=== PATIENT | female | born 1970 | race Caucasian/White ===

== ENCOUNTER → 2017-03-20 | Outpatient (CLI) | payer OTHER ==
[~2017-03-20] MED LIST: AMLO1CAP12 PO; CHOL100015 PO; OMEP40CA6 PO; SIMV20TA3 PO; TRAZ50TA18 PO; VENL150C PO
[2017-03-20 09:34] LABS: ASPARTATE AMINO TRANSFERASE 87 U/L (15-37); BLOOD UREA NITROGEN 9 mg/dL (7-18)
== END | disposition home or self-care (01) ==
LOC: STAR 08:25
PROVIDERS: ATTEND Urology
DX: Z01.818 Encounter for other preprocedural examination (principal); N39.3 Stress incontinence (female) (male)
CPT/HCPCS: 36415; 80053; 81001; 87086

== ENCOUNTER 2017-04-11 10:48 | Day surgery (SDC) | payer OTHER ==
[~2017-04-11] VITALS: Ht 167.6 cm; Wt 78.0 kg
[~2017-04-11 10:48] MED LIST changes: +BUPIVACAINE/PF-EPI 0.5% 1:200K ONE; +ESTROGENS CONJUGATED VAG CRM 0.625MG/1G, 30GM ONE; +LIDOCAINE/PF 1%-EPI 1:200K, 30ML ONE; +NEOMY/POLYMYXIN B GU IRR. 1 ML IRRIG ONE; +THROMBIN 5,000 UNIT VIAL TP ONE
[2017-04-11] MEDS ORDERED: LACTATED RINGERS 1,000 ML IV SCH (11:12)
[2017-04-11 11:35] VITALS: BP 133/83
[2017-04-11] MEDS ORDERED: FENTANYL PF 250 MCG/5ML ONE (12:56)
[2017-04-11] MEDS ORDERED: MIDAZOLAM 1 MG/ML, 2ML ONE (12:57)
[2017-04-11] MEDS ORDERED: PROMETHAZINE 25 MG/ML, 1ML IV PRN (13:00)
[2017-04-11] MEDS ORDERED: hydrALAzine 20 MG/ML, 1ML IV PRN (13:00)
[2017-04-11] MEDS ORDERED: METOPROLOL 1 MG/ML, 5ML IV PRN (13:00)
[2017-04-11] MEDS ORDERED: MEPERIDINE/PF 25MG/0.5ML IVPush PRN (13:00)
[2017-04-11] MEDS ORDERED: MIDAZOLAM 1 MG/ML, 2ML IV PRN (13:00)
[2017-04-11] MEDS ORDERED: LABETALOL 5MG/ML, 20ML IV PRN (13:00)
[2017-04-11] MEDS ORDERED: EPHEDRINE 50 MG/ML, 1ML IVPush PRN (13:00)
[2017-04-11] MEDS ORDERED: FENTANYL PF 100 MCG/2ML IV PRN (13:00)
[2017-04-11] MEDS ORDERED: ONDANSETRON 2MG/ML, 2ML IVPush PRN (13:00)
[2017-04-11] MEDS ORDERED: OXYcodone 5 MG/5 ML ORAL.SOL UDC PO PRN (13:00)
[2017-04-11] MEDS ORDERED: ACETAMINOPHEN 325 MG TABLET PO PRN (13:00)
[2017-04-11] MEDS ORDERED: METOCLOPRAMIDE 5 MG/ML, 2ML IV PRN (13:00)
[2017-04-11] MEDS ORDERED: HYDROmorphone 1 MG/ML, 1ML IV PRN (13:00)
[2017-04-11] MEDS ORDERED: SCOPOLAMINE PATCH, 1.5MG PATCH.TD72 TD ONE ×2 (13:18)
[2017-04-11] MEDS ORDERED: APREPITANT 40 MG CAPSULE ONE (13:21)
[2017-04-11] MEDS ORDERED: EPHEDRINE 50 MG/ML, 1ML ONE (13:24)
[2017-04-11] MEDS ORDERED: GENTAMICIN 80 MG/2 ML ONE ×2 (13:24→14:09)
[2017-04-11] MEDS ORDERED: AMPICILLIN 2 GM ONE (13:24)
[2017-04-11] MEDS ORDERED: PROPOFOL 10 MG/ML, 50ML ONE (13:24)
[2017-04-11] MEDS ORDERED: DEXAMETHASONE 4 MG/ML, 1ML ONE (13:24)
[2017-04-11] MEDS ORDERED: PHENYLEPHRINE 10 MG/ML ONE (13:24)
[2017-04-11] MEDS ORDERED: ALBUTEROL SULFATE 2.5 MG/3 ML NPPB ONE (15:00)
[2017-04-11] MEDS ORDERED: PROMETHAZINE 25 MG/ML, 1ML ONE (15:21)
== END 2017-04-11 18:30 | disposition home or self-care (01) ==
LOC: OUT 10:48
PROVIDERS: ATTEND Urology
DX: N39.3 Stress incontinence (female) (male) (principal); I10 Essential (primary) hypertension; K21.9 Gastro-esophageal reflux disease without esophagitis; J45.20 Mild intermittent asthma, uncomplicated; Z90.710 Acquired absence of both cervix and uterus; Z88.0 Allergy status to penicillin; Z88.1 Allergy status to other antibiotic agents; Z90.49 Acquired absence of other specified parts of digestive tract; E78.00 Pure hypercholesterolemia, unspecified; Z87.440 Personal history of urinary (tract) infections; Z72.89 Other problems related to lifestyle; F17.210 Nicotine dependence, cigarettes, uncomplicated
CPT/HCPCS: 57288; 88112; 94640; C1771; J0290; J1100; J1580; J2250; J2370; J2550; J2704; J3010; J7120; J3490; J7613; J8501

== ENCOUNTER 2018-03-20 17:03 | Observation (INO) | payer OTHER ==
[~2018-03-20] VITALS: Ht 152.4 cm; Wt 66.8 kg
[~2018-03-20 17:03] MED LIST changes: -BUPIVACAINE/PF-EPI 0.5% 1:200K ONE; -ESTROGENS CONJUGATED VAG CRM 0.625MG/1G, 30GM ONE; -LIDOCAINE/PF 1%-EPI 1:200K, 30ML ONE; -NEOMY/POLYMYXIN B GU IRR. 1 ML IRRIG ONE; -THROMBIN 5,000 UNIT VIAL TP ONE
[2018-03-20] MEDS ORDERED: ONDANSETRON ODT 4 MG ONE (18:15)
[2018-03-20] MEDS ORDERED: MORPHINE SULFATE 4 MG/ML, 1ML ONE (18:15)
[2018-03-20] MEDS ORDERED: ONDANSETRON ODT 4 MG PO ONE (18:30)
[2018-03-20] MEDS ORDERED: MORPHINE SULFATE 4 MG/ML, 1ML IVPush ONE (18:30)
[2018-03-20] MEDS ORDERED: METF500T4 PO (18:56)
[2018-03-20] MEDS ORDERED: PRAV40TA PO (18:56)
[2018-03-20 19:04] VITALS: BP 120/74
[2018-03-20] MEDS ORDERED: FENTANYL PF 100 MCG/2ML ONE (19:19)
[2018-03-20] MEDS ORDERED: MIDAZOLAM 1 MG/ML, 2ML ONE (19:19)
[2018-03-20] MEDS ORDERED: DEXAMETHASONE 4 MG/ML, 1ML ONE (19:56)
[2018-03-20] MEDS ORDERED: SUCCINYLCHOLINE 20 MG/ML, 10ML ONE (19:56)
[2018-03-20] MEDS ORDERED: KETOROLAC 30 MG/1 ML ONE (19:56)
[2018-03-20] MEDS ORDERED: METOCLOPRAMIDE 5 MG/ML, 2ML ONE (19:56)
[2018-03-20] MEDS ORDERED: PROPOFOL 10 MG/ML, 20ML ONE (19:56)
[2018-03-20] MEDS ORDERED: ONDANSETRON 2MG/ML, 2ML ONE (19:56)
[2018-03-20] MEDS ORDERED: LIDOCAINE-MPF 1%, 5ML ONE (19:56)
[2018-03-20] MEDS ORDERED: BUPIVACAINE 0.25% ONE (20:04)
[2018-03-20] MEDS ORDERED: CLINDAMYCIN 150 MG/ML, 6ML ONE (20:04)
[2018-03-20] MEDS ORDERED: EPINEPHRINE 1 MG/ML, 1ML ONE (20:04)
[2018-03-20] MEDS ORDERED: ESTROGENS CONJUGATED VAG CRM 0.625MG/1G, 30GM ONE (20:18)
[2018-03-20] MEDS ORDERED: ACETAMINOPHEN 650 MG/20.3 ML UDC ONE (21:20)
[2018-03-20] MEDS ORDERED: OXYcodone 5 MG/5 ML ORAL.SOL UDC ONE (21:20)
[2018-03-20] MEDS ORDERED: ACETAMINOPHEN 325 MG TABLET PO PRN (21:30)
[2018-03-20] MEDS ORDERED: morphine SULFATE 10 MG/ML, 1ML IV PRN (21:30)
[2018-03-20] MEDS ORDERED: ONDANSETRON 2MG/ML, 2ML IVPush PRN (21:30)
[2018-03-20] MEDS ORDERED: FENTANYL PF 100 MCG/2ML IV PRN (21:30)
[2018-03-20] MEDS ORDERED: OXYcodone 5 MG/5 ML ORAL.SOL UDC PO PRN (21:30)
[2018-03-20] MEDS ORDERED: IBUP-1222 PO (22:29)
[2018-03-20] MEDS ORDERED: SENN-87 PO (22:30)
[2018-03-20] MEDS ORDERED: ONDA4TAB12 PO (22:33)
== END 2018-03-20 22:51 | disposition home or self-care (01) ==
LOC: OR 18:58 → EDIP 18:59 → OR 19:01 → 4NOR 21:53
PROVIDERS: ADMIT Obstetrics & Gynecology; ATTEND Obstetrics & Gynecology
DX: N93.9 Abnormal uterine and vaginal bleeding, unspecified (principal); F17.200 Nicotine dependence, unspecified, uncomplicated; I10 Essential (primary) hypertension; E78.00 Pure hypercholesterolemia, unspecified; E11.9 Type 2 diabetes mellitus without complications; F32.9 Major depressive disorder, single episode, unspecified; F41.9 Anxiety disorder, unspecified; Z87.448 Personal history of other diseases of urinary system; Z90.49 Acquired absence of other specified parts of digestive tract; Z90.710 Acquired absence of both cervix and uterus
CPT/HCPCS: 36415; 57200; 82330; 82803; 82947; 84132; 84295; 85014; 96374; 99285; G0378; J0171; J0330; J1100; J1885; J2250; J2405; J2704; J2765; J3010; J3490; Q0162